=== PATIENT | male | born 1985 | race Caucasian/White ===

== ENCOUNTER 2023-05-05 09:00 | Outpatient (AMB) | payer OTHER, SELFPAY ==
--- NOTE | 2023-05-05 09:07 | MHC.PC.OV ---
Vital Signs 05/05/23 09:08 Height 5 ft 7 in Weight 164 lb BMI 25.7 BP 122/78 Blood Pressure Location Lt brachial Position Sitting Pulse 60 Pulse Source Pulse Oximeter Pulse Oximetry (%) 98 Oxygen Delivery Method Room Air Intake Visit Reasons: ENCAPSULATOR, requesting labs Document Examiner Required: No Allergies No Known Allergies Allergy (Verified 05/05/23 09:07) Tobacco use date assessed: 05/05/23 Dental Screening Dental Screen Date: 05/05/23 Did you have a dental visit in the last 12 months?: No Did you have a dental problem in the last 6 months where you did not have access to dental care?: No Was dental information given to patient?: Patient has dentist HPI HPI Comments History of Present Illness Details 30-year-old male new patient presents today to establish care. Past medical history significant for history of opiate abuse. Patient reports he used to use heroin s/p treatment with Suboxone. Patient reports has been clean x6 years including being off Suboxone. Patient requesting referral to ENT for chronic right ear blocked, with chronic right ear pain. hx of tubes multiple times as child. Patient reports he does still have his tonsils but possibly has had his adenoids removed in the past. Examination bilateral ears impacted with cerumen. Patient advise can call and schedule appointment for ear flushing. Referral entered to ENT as requested by patient. Patient also reports daily as and reflux. Patient states he has constant epigastric burning and sometimes it goes up into his esophagus. Patient states he has to take Tums daily for this. Patient denies any chest pain, palpitations, shortness of breath and syncope. Patient requesting referral to a dentist for hx poor dentition related to his hx of substance abuse, referral entered. [facility] Medical History (Updated 05/05/23 @ 09:36 by COLTON Bowers) Hx of substance abuse Family History (Updated 05/05/23 @ 09:18 by COLTON Bowers) Mother No problems noted. Father Diabetes High cholesterol Substance abuse Social History (Updated 05/05/23 @ 09:19 by COLTON Bowers) Household Members: Spouse Housing: Apartment Alcohol intake: never Patient Tobacco Use Status: Never used Tobacco e-Cigarette/Vaping Use: Currently Using Substance Use Type: Marijuana and Opiates service: No Current occupational status: employed Cognitive needs: No Hearing needs: No Vision needs: No Questionnaire PHQ-9 Over the last 2 weeks, how often have you been bothered by any of the following problems? 1. Little interest or pleasure in doing things: not at all 2. Feeling down, depressed, or hopeless: not at all 3. Trouble falling or staying asleep, or sleeping too much: not at all 4. Feeling tired or having little energy: not at all 5. Poor appetite or overeating: not at all 6. Feeling bad about yourself - or that you are a failure or have let yourself or your family down: not at all 7. Trouble concentrating on things, such as reading the newspaper or watching television: not at all 8. Moving or speaking so slowly that other people could have noticed. Or the opposite - being so fidgety or restless that you have been moving around a lot more than usual: not at all 9. Thoughts that you would be better off or of hurting yourself in some way: not at all Total score: 0 Depression Screening Interpretation: Negative 02555 - PHQ-9 Billing: Yes Source: Developed by Drs. Markel Monsalve, Siomara Vega, Farooq Lindo and colleagues, with an educational danni from [employer] Thrive Questionnaire Date Thrive assessed: 05/05/23 I am a: Patient What is your living situation today?: I have a steady place to live Within the past 12 months, did the food you bought not last and you didn't have the money to get more?: Never true Within the past 12 months, did you worry whether your food would run out before you got money to buy more?: Never true Do you have trouble getting transportation to medical appointments?: No Do you have trouble paying your heating and electricity bill?: No Do you have trouble taking care of your child, family member or friend?: No Do you have trouble with day-to-day activities such as bathing, preparing meals, shopping, managing finances, etc.?: No Are you currently unemployed and looking for a job?: No Are you interested in more education?: No AUDIT C Alcohol Use Questionnaire (AUDIT-C) 1. How often do you have a drink containing alcohol?: Never 3. How often do you have six or more drinks on one occasion?: Never Total Score: 0 GERSON-7 AMB Questionnaire GERSON-7 Date GERSON - 7 assessed: 05/05/23 Feeling nervous, anxious, or on edge: 0 = Not at all Not being able to stop or control worryin = Not at all Worrying too much about different things: 0 = Not at all Trouble relaxin = Not at all Being so restless that it is hard to sit still: 0 = Not at all Becoming easily annoyed or irritable: 0 = Not at all Feeling afraid as if something awful might happen: 0 = Not at all Total GERSON-7 score (0-4 normal; 5-9 mild; 10-14 moderate; 15-21 severe): 0 Source: Developed by Drs. Markel Monsalve, Siomara Vega, Farooq Lindo and colleagues, with an educational danni from [employer] GERSON-7 Assessment Billing GERSON-7 Assessment Tool: GERSON-7 Assessment 71548 Review of Systems Const Denies chills, Denies fatigue, Denies fever(s) and Denies poor appetite Eyes Denies no additional complaints ENT Reports Normal hearing present Card Denies chest pain, Denies syncope, Denies rapid heart rate and Denies dyspnea Resp Denies cough and Denies dyspnea GI Denies change in stool character, Denies constipation, Reports dyspepsia, Denies diarrhea, Denies nausea and Denies vomiting Denies dysuria, Denies urinary frequency and Denies urinary urgency Neuro Reports Normal hearing present, Denies confusion and Denies syncope Psych Denies confusion Endo Denies fatigue Physical exam (Primary Care) Vital Signs: Last Vital Signs Pulse 60 05/05/23 09:08 BP 122/78 05/05/23 09:08 Pulse Ox 98 05/05/23 09:08 Oxygen Delivery Method Room Air 05/05/23 09:08 BMI result Body Mass Index 25.7 Tobacco/Smoking Status: Tobacco use Status Tobacco use date assessed 05/05/23 05/05/23 09:12 Patient Tobacco Use Status Never used Tobacco 05/05/23 09:12 PHQ-9: PHQ-9 Score PHQ-9: Total score 0 05/05/23 09:12 Depression Screening Interpretation: Negative Thrive Assessment: Date of Thrive Assessment Date Thrive assessed 05/05/23 05/05/23 09:12 Const General: No confusion Orientation/consciousness: No confusion HENMT Head: Yes normocephalic and Yes atraumatic Eyes Conjunctivae: conjunctivae normal Chest Chest palpation & inspection: normal inspection of the chest Resp Effort & Inspection: normal respiratory effort Auscultation: clear to auscultation bilaterally, no crackles, no rhonchi and no wheezes Cardio Rate: regular rate Rhythm: regular rhythm Heart sounds: S1 normal heart sound present and S2 normal heart sound present GI Inspection: Yes normal to inspection Neuro General: No confusion Cranial nerves: Yes Normal hearing present Extrem General: No edema Assessment and Plan Assessment & Plan (1) Chronic right ear pain: Code(s): H92.01 - Otalgia, right ear; G89.29 - Other chronic pain Plan: Referral inter to ENT as requested by patient. Patient advised can call to schedule bilateral ear flushing when available. (2) GERD (gastroesophageal reflux disease): Code(s): K21.9 - Gastro-esophageal reflux disease without esophagitis Plan: Will trial patient on omeprazole 20 mg daily. Avoid the foods that cause that, usually spicy foods, tomato products, juices, coffee, soda and foods that you're sensitive to.? After eating do not lie down, allow 3-4 hours before lying down. And keep the head of the bed above 30 degrees to avoid the acid from going up. Plan Follow-up in 3 months for physical exam Orders: Orders Comprehensive [place]. Panel Fast Today Z13.1 - Encounter for screening for diabetes mellitus Lipid Panel Today Z13.220 - Encounter for screening for lipoid disorders TSH reflex Free T4 Today Z13.29 - Encounter for screening for other suspected endocrine disorder Complete Blood Count Auto Diff Today Z13.0 - Encounter for screening for diseases of the blood and blood-forming organs and certain disorders involving the immune mechanism Referrals Dentistry Referral Z01.20 - Encounter for dental examination and cleaning without abnormal findings Ear/Nose/Throat Referral G89.29 - Other chronic pain, H92.01 - Otalgia, right ear, K21.9 - Gastro-esophageal reflux disease without esophagitis Medications: New omeprazole 20 mg PO DAILY 30 caps 3RF K21.9 - Gastro-esophageal reflux disease without esophagitis Coding Level of Care Code New Pt Level 3 (33992) Diagnoses Chronic right ear pain H92.01; G89.29 GERD (gastroesophageal reflux disease) K21.9 Additional Codes GERSON-7 Assessment Billing - GERSON-7 Assessment Tool: GERSON-7 Assessment [id number] ([id number])
[2023-05-05 09:08] VITALS: BP 122/78; PULSE 60; O2SAT 98; BMI 25.7
== END 2023-05-05 09:35 | disposition home or self-care (01) ==
PROVIDERS: PCP Nurse Practitioner Family; Visit Provider Nurse Practitioner Family
DX: H92.01 Otalgia, right ear (principal); G89.29 Other chronic pain; K21.9 Gastro-esophageal reflux disease without esophagitis
CPT/HCPCS: 99203

== ENCOUNTER 2023-08-05 07:17 | Outpatient (AMB) | payer OTHER, SELFPAY ==
--- NOTE | 2023-08-05 07:30 | MHC.PC.OV ---
Vital Signs 08/05/23 07:31 Height 5 ft 7 in Weight 162 lb BMI 25.4 BP 122/76 Blood Pressure Location Lt brachial Position Sitting Pulse 70 Pulse Source Pulse Oximeter Pulse Oximetry (%) 98 Oxygen Delivery Method Room Air Intake Visit Reasons: Annual Exam Allergies No Known Allergies Allergy (Verified 08/05/23 07:33) Tobacco use date assessed: 05/05/23 Dental Screening Dental Screen Date: 08/05/23 Did you have a dental visit in the last 12 months?: No Did you have a dental problem in the last 6 months where you did not have access to dental care?: No Was dental information given to patient?: No HPI HPI Comments History of Present Illness Details 38-year-old male new patient presents today to establish care. Past medical history significant for history of opiate abuse. Patient reports he used to use heroin s/p treatment with Suboxone of of this for many years. Patient reports he feels like he has on diagnosed ADHD states everyone in his family has it. Patient reports inability to focus, forgetting what he was doing having difficulty completing tasks and procrastination. Patient requesting referral for evaluation, referral entered. Patient reports he continues on a wait list for [facility] for therapist. Patient started out omeprazole for reflux symptoms however he reports that he has not gone to the pharmacy to get a refill on this. Patient advised to hop picker refill. Patient reminded to get previously ordered fasting blood work completed. Patient states he never received a letter from ENT, patient unsure if addresses cracked in the computer patient advised to ensure address is corrected and will follow-up on ENT referral for chronic ear pain. eye exam: Recommended every couple of years. [facility] Medical History Hx of substance abuse Family History Mother No problems noted. Father Diabetes High cholesterol Substance abuse Social History Household Members: Spouse Housing: Apartment Alcohol intake: never Patient Tobacco Use Status: Former Tobacco user Tobacco use type: Cigarette e-Cigarette/Vaping Use: Currently Using Substance Use Type: Marijuana and Opiates service: No Current occupational status: employed Cognitive needs: No Hearing needs: No Vision needs: No Questionnaire PHQ-9 Over the last 2 weeks, how often have you been bothered by any of the following problems? 1. Little interest or pleasure in doing things: not at all 2. Feeling down, depressed, or hopeless: not at all 3. Trouble falling or staying asleep, or sleeping too much: not at all 4. Feeling tired or having little energy: not at all 5. Poor appetite or overeating: not at all 6. Feeling bad about yourself - or that you are a failure or have let yourself or your family down: not at all 7. Trouble concentrating on things, such as reading the newspaper or watching television: not at all 8. Moving or speaking so slowly that other people could have noticed. Or the opposite - being so fidgety or restless that you have been moving around a lot more than usual: not at all 9. Thoughts that you would be better off or of hurting yourself in some way: not at all Total score: 0 Depression Screening Interpretation: Negative Depression Screening Done: Yes 18132 - PHQ-9 Billing: Yes Source: Developed by Drs. Markel Monsalve, Siomara Vega, Farooq Lindo and colleagues, with an educational danni from [employer]. Thrive Questionnaire Date Thrive assessed: 05/05/23 AUDIT C Alcohol Use Questionnaire (AUDIT-C) 1. How often do you have a drink containing alcohol?: Never 3. How often do you have six or more drinks on one occasion?: Never Total Score: 0 GERSON-7 AMB Questionnaire GERSON-7 Date GERSON - 7 assessed: 05/05/23 Source: Developed by Drs. Markel Monsalve, Farooq Islas and colleagues, with an educational danni from [employer]. Review of Systems Const Denies chills, Denies fatigue, Denies fever(s) and Denies poor appetite Eyes Denies no additional complaints ENT Reports Normal hearing present Card Denies chest pain, Denies syncope, Denies rapid heart rate and Denies dyspnea Resp Denies cough and Denies dyspnea GI Denies change in stool character, Denies constipation, Denies diarrhea, Denies nausea and Denies vomiting Denies dysuria, Denies urinary frequency and Denies urinary urgency Neuro Reports Normal hearing present, Denies confusion and Denies syncope Psych Denies confusion Endo Denies fatigue Physical exam (Primary Care) Vital Signs: Last Vital Signs Pulse 70 08/05/23 07:31 BP 122/76 08/05/23 07:31 Pulse Ox 98 08/05/23 07:31 Oxygen Delivery Method Room Air 08/05/23 07:31 BMI result Body Mass Index 25.4 Tobacco/Smoking Status: Tobacco use Status Tobacco use date assessed 05/05/23 08/05/23 07:37 Patient Tobacco Use Status Former Tobacco user 08/05/23 07:37 Tobacco use type Cigarette 08/05/23 07:37 e-Cigarette/Vaping Use Currently Using 08/05/23 07:37 PHQ-9: PHQ-9 Score PHQ-9: Total score 0 08/05/23 07:40 Depression Screening Interpretation: Negative Thrive Assessment: Date of Thrive Assessment Date Thrive assessed 05/05/23 08/05/23 07:37 Const General: No confusion Orientation/consciousness: No confusion HENMT Head: Yes normocephalic and Yes atraumatic Ears: external ears normal and TM's normal bilaterally General nose exam: Normal external nose present and Normal nasal mucous membranes and turbinates present Face and sinus: Yes normal facial exam and Yes sinuses nontender Mouth: moist mucous membranes Throat: Yes tonsils normal Eyes Conjunctivae: conjunctivae normal Sclerae: sclerae normal Pupils: Equal, round and reactive pupils present and Pupils normal by confrontation EOM: EOMs intact bilaterally Direct Ophthalmoscopy: normal light reflex Neck Neck: Yes no lymphadenopathy and Yes supple Thyroid: Thyroid normal Chest Chest palpation & inspection: normal inspection of the chest Resp Effort & Inspection: normal respiratory effort Auscultation: clear to auscultation bilaterally, no crackles, no rhonchi and no wheezes Cardio Rate: regular rate Rhythm: regular rhythm Peripheral pulses: radial pulses present and dorsalis pedis present GI Inspection: Yes normal to inspection Palpation (GI): Soft to palpation, nontender and No hepatosplenomegaly present Auscultation: normoactive bowel sounds Skin General skin exam: no rashes or lesions noted Neuro General: No confusion Cranial nerves: Yes Equal, round and reactive pupils present and Yes Normal hearing present Cognition (Neuro): normal cognition Gait exam (Neuro): Normal gait present Motor exam (neuro): 5/5 motor strength present throughout Deep tendon reflexes (DTR's): Right brachioradialis reflex intensity grade: 2+, Left brachioradialis reflex intensity grade: 2+, Right patellar reflex intensity grade: 2+ and Left patellar reflex intensity grade: 2+ Extrem General: No edema Assessment and Plan Assessment & Plan (1) GERD (gastroesophageal reflux disease): Code(s): K21.9 - Gastro-esophageal reflux disease without esophagitis Plan: Continue on omeprazole 20 mg daily. Avoid the foods that cause that, usually spicy foods, tomato products, juices, coffee, soda and foods that you're sensitive to.? After eating do not lie down, allow 3-4 hours before lying down. And keep the head of the bed above 30 degrees to avoid the acid from going up. (2) Physical exam, annual: Code(s): Z00.00 - Encounter for general adult medical examination without abnormal findings Plan: Follow-up in 1 year for physical exam Plan Follow-up in 1 year Orders: Referrals Psychiatry Referral Z13.39 - Encounter for screening examination for other mental health and behavioral disorders Coding Level of Care Code Est Pt Prev Care [id number]([id number]) Diagnoses GERD (gastroesophageal reflux disease) K21.9 Physical exam, annual Z00.00
[2023-08-05 07:31] VITALS: BP 122/76; PULSE 70; O2SAT 98; BMI 25.4
== END 2023-08-05 07:54 | disposition home or self-care (01) ==
PROVIDERS: PCP Nurse Practitioner Family; Visit Provider Nurse Practitioner Family
DX: K21.9 Gastro-esophageal reflux disease without esophagitis (principal); Z00.00 Encounter for general adult medical examination without abnormal findings
CPT/HCPCS: 99395